=== PATIENT | male | born 1940 | race Caucasian/White ===

== ENCOUNTER 2017-01-03 10:57 | Emergency (ER) | payer MEDICARE, BC ==
[2017-01-03 11:08] VITALS: BP 145/89
--- NOTE | 2017-01-31 18:22 | UC ---
Laceration HPI - HPI Summary HPI Summary: Tripped and hit head laceration above left eye brow, patient is on Coumadin - History Of Current Complaint Chief Complaint: UCLaceration Stated Complaint: FELL FACIAL LAC Time Seen by Provider: 01/03/17 11:34 Hx Obtained From: Patient Mechanism Of Injury: Blunt Trauma Onset/Duration: Sudden Onset Severity: Mild Aggravating Factors: Nothing - Allergies/Home Medications Allergies/Adverse Reactions: Allergies Allergy/AdvReac Type Severity Reaction Status Date / Time Penicillins [PCN] Allergy Unknown Verified 01/03/17 11:08 Reaction Details SULFA DRUGS Allergy HEART Uncoded 01/03/17 11:08 PALPITATION, DIFF BREATHING, SWELLING PMH/Surg Hx/FS Hx/Imm Hx Previously Healthy: No Endocrine History: Diabetes, Hypothyroidism Cardiovascular History: Cardiac Disease, Hypertension - Surgical History Surgical History: Yes Surgery Procedure, Year, and Place: THYROIDECTOMY-4 YEARS AGO- [facility]. RIGHT SHOULDER SURGERY FOR PINCHED NERVE-BILL. [place] [facility] [place]IL[place] AND ADENOIDECTOMY - Family History Known Family History: Positive: None - Social History Occupation: Retired Lives: With Family Alcohol Use: Occasionally Substance Use Type: None Smoking Status (MU): Former Smoker Amount Used/How Often: 1-2 PPD X 14 YEARS Have You Smoked in the Last Year: Yes When Did the Patient Quit Smoking/Using Tobacco: 1973 - Immunization History Most Recent Tetanus Shot: Will need Review of Systems Constitutional: Negative Skin: Other - laceration above left eye Eyes: Negative ENT: Negative Respiratory: Negative Cardiovascular: Negative Gastrointestinal: Negative Genitourinary: Negative Motor: Negative Neurovascular: Negative Musculoskeletal: Negative Neurological: Negative Psychological: Negative Is Patient Immunocompromised?: No All Other Systems Reviewed And Are Negative: Yes Physical Exam Triage Information Reviewed: Yes Appearance: Well-Appearing, No Pain Distress, Well-Nourished Vital Signs: Initial Vital Signs Temp 97.4 F 01/03/17 11:03 Pulse 95 01/03/17 11:03 Resp 18 01/03/17 11:03 BP 145/89 01/03/17 11:03 Pulse Ox 97 01/03/17 11:03 Vital Signs Reviewed: Yes Eye Exam: Normal Eyes: Positive: Conjunctiva Clear ENT Exam: Normal ENT: Positive: Normal ENT inspection, Hearing grossly normal, Pharynx normal, TMs normal. Negative: Nasal congestion, Nasal drainage, Tonsillar swelling, Tonsillar exudate, Trismus, Hoarse voice, Sinus tenderness Dental Exam: Normal Neck exam: Normal Neck: Positive: Supple, Nontender, No Lymphadenopathy Respiratory Exam: Normal Respiratory: Positive: Chest non-tender, Lungs clear, Normal breath sounds, No respiratory distress, No accessory muscle use Cardiovascular Exam: Normal Cardiovascular: Positive: RRR, No Murmur, Pulses Normal, Brisk Capillary Refill Musculoskeletal Exam: Normal Musculoskeletal: Positive: Strength Intact, ROM Intact, No Edema Neurological Exam: Normal Neurological: Positive: Alert, Muscle Tone Normal Psychological Exam: Normal Skin Exam: Normal Re-Evaluation - Re-Evaluation First Eval Change: Unchanged - will transfer to [facility] [place] for [place] scan- Laceration Course/Dx - Course/Dx Course Of Treatment: dressing one laceration to [facility] [place] for ct scan due to hitting head and on coumadin - Differential Dx - Laceration/Wound Provider Diagnoses: Head injury, anticoagulated, laceration above left eye brow Discharge - Discharge Plan Condition: Stable Disposition: HOME Patient Education Materials: Head Injury (ED), Facial Laceration (ED) Referrals: Wilver Garcia MD [Primary Care Provider] - Additional Instructions: Mr. Cox, We suggest that you report directly to the emergency department for additional care that I cannot provide for you here. Your Coumadin puts you at higher risk for bleeding in to your brain
== END 2017-01-03 11:50 | disposition home or self-care (01) ==
LOC: UCEAST 10:57
DX: S01.81XA Laceration without foreign body of other part of head, initial encounter (principal); W01.0XXA Fall on same level from slipping, tripping and stumbling without subsequent striking against object, initial encounter; Y93.9 Activity, unspecified; Y92.9 Unspecified place or not applicable; Z88.0 Allergy status to penicillin; Z88.2 Allergy status to sulfonamides; E11.9 Type 2 diabetes mellitus without complications; E03.9 Hypothyroidism, unspecified; I10 Essential (primary) hypertension; I51.9 Heart disease, unspecified; Z79.01 Long term (current) use of anticoagulants; Z87.891 Personal history of nicotine dependence
CPT/HCPCS: 99212; G0463

== ENCOUNTER 2022-10-20 05:38 | Inpatient (IN) ==
[~2022-10-20 05:38] MED LIST: Gentamicin ADULT 365 MG in NS 0.9% 100 ml BAG 100 ML IVPB SCH
[2022-10-20] MEDS ORDERED: Lactated Ringers 1000 ml BAG 1,000 ML IV SCH ×2 (06:00→13:00)
[2022-10-20] MEDS ORDERED: Buffered Lidocaine 1% SYRIN 1 ml INTRADERM ONE (06:00)
[2022-10-20 06:16] LABS: Rapid COVID-19 Molecular Undetected (Undetected)
[2022-10-20] MEDS ORDERED: Clindamycin 600 MG/NS BAG(*) 600 MG/50 ML BAG ONE (06:41)
[2022-10-20] MEDS ORDERED: Clindamycin 300 MG/D5W BAG 300 MG/50 ML BAG IV ONE (06:41)
[2022-10-20] MEDS ORDERED: Rocuronium 50 mg VIAL 10 mg/ml 5 ml VIAL (50 mg) ONE (06:57)
[2022-10-20] MEDS ORDERED: fentaNYL 250 mcg/5 ml 50 MCG/ML 5 ml VIAL (250 MCG) ONE ×2 (06:57→11:50)
[2022-10-20] MEDS ORDERED: Ondansetron 4 mg VIAL 2 MG/ML 2 ml VIAL ONE (06:57)
[2022-10-20] MEDS ORDERED: Propofol 10 MG/ML 20 ML BTL ONE (06:57)
[2022-10-20] MEDS ORDERED: Lidocaine 2% PF 5 ML VIAL ONE ×2 (06:57→07:49)
[2022-10-20] MEDS ORDERED: Dexamethasone IV 4 MG/ML VIAL 1 ml VIAL ONE (06:57)
[2022-10-20] MEDS ORDERED: Bupivacaine 0.25% SDV 30 ML ONE ×2 (07:12→07:32)
[2022-10-20] MEDS ORDERED: Lidocaine 1% w EPI 1:200,000 SDV 30 ML VIAL ONE (07:12)
[2022-10-20] MEDS ORDERED: Bupivacaine 0.5% 50 ML MDV VIAL ONE ×2 (07:31→07:40)
[2022-10-20] MEDS ORDERED: Dexmedetomidine 200 mcg/2 ml 2 ml VIAL (200 mcg) ONE (07:40)
[2022-10-20 07:41] LABS: ABS Basophils 0.2 10^3/uL (0.0-0.1); ABS Eosinophils 0.3 10^3/uL (0.0-0.5); ABS Lymphocytes 0.6 10^3/uL (1.0-4.8); ABS Monocytes 0.5 10^3/uL (0.0-1.1); ABS Neutrophils 3.8 10^3/uL (1.5-7.6); Hemoglobin 9.2 g/dL (13.2-16.3); Lymphocyte % 11.3 %; Mean Corpuscular Hemoglobin 30.4 pg (27-33); Mean Corpuscular Hgb Conc 34.2 g/dL (31-36); Mean Corpuscular Volume 88.9 fL (80-97); Mean Platelet Volume 8.2 fL (7.5-11.2); Platelet Count 249 10^3/uL (150-450); Red Blood Count 3.03 10^6/uL (4.06-5.63); Red Cell Distribution Width 16.7 % (12-17); White Blood Count 5.4 10^3/uL (3.6-10.2)
[2022-10-20] MEDS ORDERED: Midazolam 2 mg/2 ml VIAL 1 mg/ml 2 ml VIAL (2 mg) ONE (07:44)
[2022-10-20] MEDS ORDERED: fentaNYL 100 mcg/2 ml 50 MCG/ML VIAL ONE ×2 (07:44→13:23)
[2022-10-20 07:48] LABS: INR 1.15 (0.83-1.13)
[2022-10-20] MEDS ORDERED: Phenylephrine IV 10 MG/ML 1 ml VIAL ONE (09:01)
[2022-10-20] MEDS ORDERED: Ondansetron 4 mg VIAL 2 MG/ML 2 ml VIAL IV PRN ×2 (11:43→13:08)
[2022-10-20] MEDS ORDERED: fentaNYL 100 mcg/2 ml 50 MCG/ML VIAL IV PRN (11:43)
[2022-10-20] MEDS ORDERED: HYDROmorphone 1 MG/1 ML SYRINGE IV PRN (11:43)
[2022-10-20] MEDS ORDERED: Naloxone 0.4 mg VIAL 0.4 mg/ml 1 ml VIAL IV PRN (11:43)
[2022-10-20] MEDS ORDERED: Dextrose 50% Syringe 50 ml 25 GM/50 ML SYRINGE IV PUSH PRN (12:32)
[2022-10-20] MEDS ORDERED: HYDROmorphone 0.5 MG/0.5 ML SYRINGE IV SLOW PU PRN (13:08)
[2022-10-20] MEDS: Heparin 5000 UNITS/ML 1 mL VIAL SUBCUT SCH ×3 (16:11→21:10)
[2022-10-20] MEDS: Acetaminophen IV 1 GM/100ML 1,000 MG/100 ML BAG IV SCH ×2 (16:11→23:46)
[2022-10-20] MEDS ORDERED: Insulin GLARGINE 100 un/ml 10 ml VIAL SUBCUT SCH (21:00)
[2022-10-20] MEDS: Erythromycin OPTH OINT APPLIC OINT RIGHT EYE SCH ×2 (21:05→22:11)
[2022-10-20] MEDS: CMCS:Ranolazine 500 mg TAB ER (NF) PO SCH (21:07)
[2022-10-20] MEDS: HYDROcodone/ACETAMIN 5/325 mg TAB PO PRN (21:14)
[2022-10-21 05:43] LABS: ABS Lymphocytes 0.7 10^3/uL (1.0-4.8); ABS Monocytes 0.5 10^3/uL (0.0-1.1); ABS Neutrophils 6.3 10^3/uL (1.5-7.6); ABS Nucleated RBC 0.01 10^3/ul; Eosinophil % 0.1 %; Hematocrit 26.9 % (38-53); Hemoglobin 9.1 g/dL (13.2-16.3); Lymphocyte % 9.5 %; Mean Corpuscular Hemoglobin 30.1 pg (27-33); Mean Corpuscular Hgb Conc 33.9 g/dL (31-36); Mean Corpuscular Volume 88.7 fL (80-97); Mean Platelet Volume 8.3 fL (7.5-11.2); Nucleated Red Blood Cells % 0.1 /100 WBC (0.0-0.4); Platelet Count 236 10^3/uL (150-450); Red Blood Count 3.03 10^6/uL (4.06-5.63); Red Cell Distribution Width 16.5 % (12-17); White Blood Count 7.6 10^3/uL (3.6-10.2)
[2022-10-21] MEDS: Acetaminophen IV 1 GM/100ML 1,000 MG/100 ML BAG IV SCH ×3 (05:51→17:54)
[2022-10-21] MEDS: Heparin 5000 UNITS/ML 1 mL VIAL SUBCUT SCH (05:53)
[2022-10-21 06:02] LABS: Calcium 8.8 mg/dL (8.6-10.3); Creatinine, Serum 2.37 mg/dL (0.67-1.17); Potassium 5.7 mmol/L (3.5-5.0); eGFR CKD-EPI 26.7 (>60)
[2022-10-21] MEDS: Isosorbide Mononit ER 30mg TAB PO SCH (08:36)
[2022-10-21] MEDS: CMCS:Ranolazine 500 mg TAB ER (NF) PO SCH ×2 (08:37→21:07)
[2022-10-21] MEDS ORDERED: SODIUM ZIRCONIUM CYCLOSILICATE 10 GM PACKET PO ONE (09:00)
[2022-10-21] MEDS: Erythromycin OPTH OINT APPLIC OINT RIGHT EYE SCH ×4 (09:37→21:08)
[2022-10-21] MEDS ORDERED: hydrALAZINE 20 mg/ml 1 ML Vial IV IV SLOW PU PRN (15:48)
[2022-10-21] MEDS ORDERED: Enoxaparin 100 MG/ML SYR SUBCUT ONE (20:00)
[2022-10-21] MEDS: Insulin GLARGINE 100 un/ml 10 ml VIAL SUBCUT SCH (21:08)
[2022-10-21] MEDS: HYDROcodone/ACETAMIN 5/325 mg TAB PO PRN (21:08)
[2022-10-22] MEDS: Acetaminophen IV 1 GM/100ML 1,000 MG/100 ML BAG IV SCH ×4 (00:12→18:10)
[2022-10-22 06:20] LABS: ABS Eosinophils 0.3 10^3/uL (0.0-0.5); ABS Lymphocytes 1.1 10^3/uL (1.0-4.8); ABS Monocytes 0.6 10^3/uL (0.0-1.1); ABS Neutrophils 4.5 10^3/uL (1.5-7.6); ABS Nucleated RBC 0.01 10^3/ul; Hematocrit 22.3 % (38-53); Hemoglobin 7.7 g/dL (13.2-16.3); Lymphocyte % 16.4 %; Mean Corpuscular Hemoglobin 30.3 pg (27-33); Mean Corpuscular Hgb Conc 34.3 g/dL (31-36); Mean Corpuscular Volume 88.2 fL (80-97); Nucleated Red Blood Cells % 0.1 /100 WBC (0.0-0.4); Platelet Count 211 10^3/uL (150-450); Red Blood Count 2.53 10^6/uL (4.06-5.63); Red Cell Distribution Width 16.9 % (12-17); White Blood Count 6.5 10^3/uL (3.6-10.2)
[2022-10-22 06:35] LABS: Calcium 7.9 mg/dL (8.6-10.3); Creatinine, Serum 3.66 mg/dL (0.67-1.17); Potassium 4.5 mmol/L (3.5-5.0); eGFR CKD-EPI 15.8 (>60)
[2022-10-22] MEDS: Isosorbide Mononit ER 30mg TAB PO SCH (08:24)
[2022-10-22] MEDS: Erythromycin OPTH OINT APPLIC OINT RIGHT EYE SCH ×4 (08:25→20:51)
[2022-10-22] MEDS: CMCS:Ranolazine 500 mg TAB ER (NF) PO SCH ×2 (08:25→20:56)
[2022-10-22 17:20] LABS: Hematocrit 24.8 % (38-53); Hemoglobin 8.4 g/dL (13.2-16.3)
[2022-10-22] MEDS: Heparin 5000 UNITS/ML 1 mL VIAL SUBCUT SCH (17:20)
[2022-10-22] MEDS: Warfarin DAILY REMINDER **NOTE FOLLOW UP SCH (17:35)
[2022-10-22] MEDS: Warfarin per PHARMACY **NOTE FOLLOW UP SCH (17:36)
[2022-10-22 17:38] LABS: Calcium 8.4 mg/dL (8.6-10.3); Creatinine, Serum 3.68 mg/dL (0.67-1.17); Potassium 5.1 mmol/L (3.5-5.0); eGFR CKD-EPI 15.7 (>60)
[2022-10-22] MEDS: Insulin GLARGINE 100 un/ml 10 ml VIAL SUBCUT SCH (20:37)
[2022-10-22 22:10] LABS: Osmolality Serum 294 mOsm/kg (275-295)
[2022-10-23] MEDS: Acetaminophen IV 1 GM/100ML 1,000 MG/100 ML BAG IV SCH ×3 (00:31→13:10)
[2022-10-23] MEDS: Heparin 5000 UNITS/ML 1 mL VIAL SUBCUT SCH (00:55)
[2022-10-23 05:26] LABS: Urine Osmo 159 mOsm/kg (150-1150)
[2022-10-23 06:25] LABS: ABS Eosinophils 0.3 10^3/uL (0.0-0.5); ABS Lymphocytes 0.8 10^3/uL (1.0-4.8); ABS Monocytes 0.5 10^3/uL (0.0-1.1); ABS Neutrophils 4.1 10^3/uL (1.5-7.6); Eosinophil % 4.9 %; Hematocrit 24.7 % (38-53); Hemoglobin 8.4 g/dL (13.2-16.3); Lymphocyte % 13.3 %; Mean Corpuscular Hgb Conc 34.1 g/dL (31-36); Mean Platelet Volume 8.7 fL (7.5-11.2); Platelet Count 234 10^3/uL (150-450); Red Cell Distribution Width 16.7 % (12-17); White Blood Count 5.7 10^3/uL (3.6-10.2)
[2022-10-23 06:29] LABS: INR 1.11 (0.83-1.13)
[2022-10-23 07:05] LABS: Calcium 7.8 mg/dL (8.6-10.3); Potassium 4.8 mmol/L (3.5-5.0)
[2022-10-23 07:11] LABS: Creatinine, Serum 3.82 mg/dL (0.67-1.17)
[2022-10-23] MEDS: Erythromycin OPTH OINT APPLIC OINT RIGHT EYE SCH ×2 (08:44→13:07)
[2022-10-23] MEDS: Isosorbide Mononit ER 30mg TAB PO SCH (10:25)
[2022-10-23] MEDS: CMCS:Ranolazine 500 mg TAB ER (NF) PO SCH ×2 (10:25→21:22)
[2022-10-23] MEDS: Enoxaparin 100 MG/ML SYR SUBCUT SCH (10:27)
[2022-10-23 14:46] LABS: Creatinine, Serum 3.95 mg/dL (0.67-1.17); Potassium 5.4 mmol/L (3.5-5.0); eGFR CKD-EPI 14.5 (>60)
[2022-10-23] MEDS ORDERED: SODIUM ZIRCONIUM CYCLOSILICATE 5 GM PACKET PO ONE ×2 (16:15→19:00)
[2022-10-23] MEDS ORDERED: SODIUM ZIRCONIUM CYCLOSILICATE 10 GM PACKET PO ONE (17:20)
[2022-10-23] MEDS: Warfarin per PHARMACY **NOTE FOLLOW UP SCH (17:25)
[2022-10-23] MEDS: Warfarin DAILY REMINDER **NOTE FOLLOW UP SCH (17:25)
[2022-10-23] MEDS ORDERED: Insulin GLARGINE 100 un/ml 10 ml VIAL SUBCUT SCH (21:00)
[2022-10-24 07:32] LABS: INR 1.34 (0.83-1.13)
[2022-10-24 07:42] LABS: Calcium 8.1 mg/dL (8.6-10.3); Creatinine, Serum 3.74 mg/dL (0.67-1.17); Potassium 5.4 mmol/L (3.5-5.0); eGFR CKD-EPI 15.4 (>60)
[2022-10-24] MEDS ORDERED: SODIUM ZIRCONIUM CYCLOSILICATE 10 GM PACKET PO ONE (09:02)
[2022-10-24] MEDS: Isosorbide Mononit ER 30mg TAB PO SCH (10:33)
[2022-10-24] MEDS: CMCS:Ranolazine 500 mg TAB ER (NF) PO SCH (10:34)
[2022-10-24] MEDS: Enoxaparin 100 MG/ML SYR SUBCUT SCH (10:36)
[2022-10-24 14:41] VITALS: BP 166/83
== END 2022-10-24 15:14 | disposition home or self-care (01) | DRG 330 ==
LOC: AA 05:38 → SSU 14:52
PROVIDERS: ADMIT Surgery; ATTEND Surgery